=== PATIENT | female | born 1935 | race Caucasian/White ===

== ENCOUNTER → 2018-08-24 | Outpatient (CLI) | payer MEDICARE, BC, MEDICAID ==
[2018-08-24] MEDS: REGADENOSON 0.4 MG/5 ML SYG (11:17)
== END | disposition home or self-care (01) ==
LOC: NUC 09:05
DX: I10 Essential (primary) hypertension (principal); I70.0 Atherosclerosis of aorta; E78.5 Hyperlipidemia, unspecified; Z96.649 Presence of unspecified artificial hip joint
CPT/HCPCS: 78452; 93017